=== PATIENT | female | born 1990 | race Caucasian/White ===

== ENCOUNTER 2018-01-16 17:10 | Emergency (ER) | payer MEDICAID ==
[~2018-01-16] VITALS: Ht 172.7 cm; Wt 50.0 kg
[2018-01-16 17:17] VITALS: BP 111/62
[2018-01-16 17:36] LABS: CLARITY,URINE CLOUDY (Clear); COLOR,URINE YELLOW (Yellow); GLUCOSE, URINE NEGATIVE (Neg); KETONES,URINE TRACE mg/dl (Neg); LEUKOCYTE ESTERASE ,URINE SMALL (Neg); NITRITES, URINE POSITIVE (Neg); OCCULT BLOOD,URINE NEGATIVE (Neg); PH,URINE 6.5 (4.8-8.0); PROTEIN,URINE NEGATIVE (Neg)
[2018-01-16 17:43] LABS: UA COLLECTION TYPE NON-SPECIFIED
[2018-01-16 17:44] LABS: URINE HCG NEGATIVE (NEG)
[2018-01-16 17:45] LABS: BACTERIA,URINE 4+ /HPF (Neg); MUCUS STRANDS NONE SEEN /LPF (Neg); RBC,URINE NONE SEEN /HPF (0-2); RENAL CELLS, URINE FEW /HPF; SQUAMOUS EPITHELIAL CELL,UR MODERATE /LPF (FEW); WBC,URINE 50-100 /HPF (0-4)
[2018-01-16] MEDS ORDERED: PHEN-786 PO (17:57)
[2018-01-16] MEDS ORDERED: CIPR-259 PO (17:57)
[2018-01-16] MEDS ORDERED: phenazopyridine 100mg tablet PO ONE (18:00)
[2018-01-16] MEDS ORDERED: ciprofloxacin 250mg tablet PO ONE (18:00)
== END 2018-01-16 18:19 | disposition home or self-care (01) ==
LOC: ER 17:11
DX: N39.0 Urinary tract infection, site not specified (principal); F15.90 Other stimulant use, unspecified, uncomplicated; Z60.2 Problems related to living alone
CPT/HCPCS: 81001; 81025; 87077; 87088; 87186; 99284

== ENCOUNTER 2022-09-08 13:59 | Emergency (ER) | payer MEDICAID ==
[~2022-09-08] VITALS: Ht 172.7 cm; Wt 55.6 kg
[~2022-09-08 13:59] MED LIST: PHEN-786 PO
[2022-09-08 14:03] VITALS: BP 113/56
[2022-09-08] MEDS ORDERED: triamcinolone acetonide 40mg/ml inj IM ONE (14:55)
[2022-09-08] MEDS ORDERED: triamcinolone acet 0.1% cream 15gm TP STA (15:02)
== END 2022-09-08 15:42 | disposition home or self-care (01) ==
LOC: ER 13:59
DX: L23.9 Allergic contact dermatitis, unspecified cause (principal); F15.10 Other stimulant abuse, uncomplicated
CPT/HCPCS: 96372; 99283; J3301

== ENCOUNTER 2025-01-19 22:30 | Emergency (ER) | payer MEDICAID ==
[~2025-01-19] VITALS: Ht 172.7 cm; Wt 59.1 kg
[2025-01-19 22:33] VITALS: BP 118/61; PULSE 72; RESP 16; O2SAT 99
[2025-01-20] MEDS ORDERED: AMOX-115 PO (01:00)
--- NOTE | 2025-01-20 01:01 | Physician Documentation ---
History of Present Illness ~ Chief Complaint: Nose Pain Stated Complaint: SINUS INFECTION Time Seen by MD: 00:49 HPI Patient presents to the emergency room with three day history of pimple inside her right Mathews. She is concerned it might be giving her sinus infection. No fevers Medication Reconciliation Allergies: Coded Allergies: No Known Allergies (Unverified , 01/19/25) Scheduled PRN Phenazopyridine Hcl (Pyridium tablet), 1 TAB PO Q8H PRN for urinary burning Past Medical History Past Medical History: No Pertinent History Past Surgical History: noncontributory Alcohol Use: None Drug Use: methamphetamine Lives with: Alone Lives In: Home Review of Systems ROS All review of systems negative except as per HPI Physical Exam Vital Signs: Temperature: 98.2, Source: Temporal, Heart Rate: 72, Respiratory Rate: 16, BP: 118/61, Pulse Oximetry: 99, Weight: 59.090 Oxygen Flow Rate: 0 Physical Exam General: Patient is awake, alert, oriented x4 in no acute distress Head: Normocephalic and atraumatic. Eyes: Conjunctival normal. EOMI. PERRL. ENT: Mucous membranes moist. Patient has a white head with associated swelling on the lateral aspect of her right Mathews Neck: Supple, trachea is midline. Chest: Clear to auscultation bilaterally without rales, rhonchi, or wheezes. There is no accessory muscle use or retractions. Cardiac: RRR without murmurs, gallops, or rubs. Progress Results/Orders Results/Orders Vital Signs 01/19/25 22:33 Temp 98.2 Pulse 72 Resp 16 B/P (MAP) 118/61 Pulse Ox 99 O2 Flow Rate 0 Medical Decision Making Findings Patient presents to the emergency room for evaluation of a pimple inside her right nostril. 27 gauge needle utilized to de roof patient has Bosch. As patient's infection is in the danger triangle of the face we will start antibiotics. Nose Diff. Dx: Considerations: Include: Abrasion, Anterior nasal bleed, Avulsion, Contusion, Coagulopathy, Fracture-nasal bone, Fracture-septum, Hypertension, Laceration, Other, Posterior nasal bleed, Retained foreign body, Septal hematoma Departure Disposition: 01 HOME / SELF CARE / HOMELESS Impression: Primary Impression: Abscess Condition: Stable Discharge Instructions: Sinus Infection, Adult, [id number] Referrals: NO PRIMARY CARE PROVIDER (PCP) Prescriptions Amox Tr/Potassium Clavulanate (Augmentin 500-125 Tablet) 1 Each Tablet 1 TAB PO Q12H for 7 Days, #14 TAB Prov: MILIND GALVAN MD 01/20/25 Signature Scribe Signature: No scribe Attestation: The note accurately reflects work and decisions made by me.Milind Galvan MD 01/20/25 01:01 MILIND GALVAN MD Jan 20, 2025 01:01
[2025-01-20 01:18] VITALS: TEMP 98.2
== END 2025-01-20 01:19 | disposition home or self-care (01) ==
LOC: ER 22:30
DX: J34.0 Abscess, furuncle and carbuncle of nose (principal); F15.90 Other stimulant use, unspecified, uncomplicated
CPT/HCPCS: 99283